=== PATIENT | male | born 1965 | race Caucasian/White ===

== ENCOUNTER → 2024-04-02 | Outpatient (CLI) | payer OTHER | END | disposition home or self-care (01) | LOC: LAB 18:43 → LAB SHORT 18:43 | DX: R73.9 Hyperglycemia, unspecified (principal) ==

== ENCOUNTER → 2025-02-17 | Outpatient (CLI) | payer OTHER ==
[~2025-02-17] MED LIST: AMPDEX10CR PO; FISH OIL 1,0001 EA10 PO; METF500 PO; MULTI-VITAMIN1 EAC2 PO; OZEMPIC1 MG/0.72 SC; POTA8 PO; VITAMIN B-1100 M2 PO; VITAMIN B-610 MG PO; VITAMIN B121000 MCG PO; VITAMIN D5000 UNIT PO
[2025-02-21 11:41] LABS: FREE URINE KAPPA EXCRETION/DAY 47.17 mg/d; FREE URINE KAPPA LIGHT CHAINS 42.88 mg/L (0.00-32.90); FREE URINE LAMBDA EXCRET/DAY 10.49 mg/d; FREE URINE LAMBDA LIGHT CHAIN 9.54 mg/L (0.00-3.79); HOURS COLLECTED 24 hr; TOTAL VOLUME 1100 mL
== END ==
LOC: LAB SHORT 08:00 → LAB 08:00 → LAB SHORT 02-22 13:44
PROVIDERS: Internal Medicine Gastroenterology
DX: D47.2 Monoclonal gammopathy (principal)
CPT/HCPCS: 83521; 84156; 86335

== ENCOUNTER 2025-03-09 07:56 | Day surgery (SDC) | payer OTHER ==
[~2025-03-09] VITALS: Ht 181 cm; Wt 178.2 kg
[~2025-03-09 07:56] MED LIST changes: +Lactated Ringer's 1,000 ML IV SCH
--- NOTE | 2025-03-09 09:49 | NUR ---
03/09/25 0949 Marino Barros History, Chart, Medications and Allergies reviewed before start of procedure.MONITOR INTACT WITH CONTINUOUS PULSE OXIMETRY, CONTINUOUS END TITAL CO2, 3-LEAD EKG AND INTERMITTENT BLOOD PRESSURE.3-LEAD EKG REVIEWED WITH PHYSICIAN PRIOR TO START OF PROCEDURE.O2 VIA POM INTACT THROUGHOUT SEDATION/PROCEDURE.See Anesthesia record.
[2025-03-09] MEDS ORDERED: propofoL 40 ML IV ONE ×2 (09:57→10:11)
[2025-03-09 10:01] VITALS: BP 158/80
--- NOTE | 2025-03-09 10:04 | NUR ---
History, Chart, Medications and Allergies reviewed before start of procedure. Pre-Op teaching done. Pt verbalizes understanding. Patient States Post-Procedure ride home has been arranged.
[2025-03-09 10:35] VITALS: BP 133/82
--- NOTE | 2025-03-09 10:37 | NUR ---
REPORT RECEIVED FROM ILA URIBE. VSS. PT ON RA. PT [id number]&[id number]. PT ABLE TO REPOSITION SELF IN BED. PT REQUESTING PO FLUIDS AND TOLERATING THEM WELL. PT DENIES PAIN, NAUSEA OR OTHER DISCOMFORTS.
[2025-03-09 10:45] VITALS: BP 129/84
== END 2025-03-09 10:58 | disposition home or self-care (01) ==
LOC: ORSCMMR 07:56
PROVIDERS: Internal Medicine Gastroenterology
PROC: 0DB78ZX Excision of Stomach, Pylorus, Via Natural or Artificial Opening Endoscopic, Diagnostic (ICD-10-PCS; principal; 2025-03-09 09:30)
PROC: 0DB98ZX Excision of Duodenum, Via Natural or Artificial Opening Endoscopic, Diagnostic (ICD-10-PCS; principal; 2025-03-09 09:30)
PROC: 0DJD8ZZ Inspection of Lower Intestinal Tract, Via Natural or Artificial Opening Endoscopic (ICD-10-PCS; principal; 2025-03-09 09:30)
DX: D50.9 Iron deficiency anemia, unspecified (principal); R77.1 Abnormality of globulin; Z86.0100 Personal history of colon polyps, unspecified; E66.01 Morbid (severe) obesity due to excess calories; Z68.43 Body mass index [BMI] 50.0-59.9, adult; G47.33 Obstructive sleep apnea (adult) (pediatric); E11.9 Type 2 diabetes mellitus without complications; Z79.84 Long term (current) use of oral hypoglycemic drugs; F99 Mental disorder, not otherwise specified; Z79.899 Other long term (current) drug therapy
CPT/HCPCS: 82947; 88305; 88342; J2704; J7120